=== PATIENT | male | born 1970 | race Caucasian/White ===

== ENCOUNTER 2018-07-26 18:04 | Emergency (ER) | payer OTHER ==
[2018-07-26 18:09] VITALS: BP 119/84; PULSE 73; TEMP 97.3; BMI 25.7
--- NOTE | 2018-07-26 18:11 | PDOC ---
Rapid Medical Evaluation Medical Evaluation: Allergies Allergy/AdvReac Type Severity Reaction Status Date / Time No Known Allergies Allergy Verified 05/18/15 08:28 07/26/18 18:06 I have performed a brief in-person evaluation of this patient. The patient presents with a chief complaint of:left knee pain / slipped and fell - onto hyper flexed knee , hyperextended right thumb Pertinent physical exam findings: some swelling and pain / amb with limp I have ordered the following: right thumb , left knee The patient will proceed to the ED for further evaluation. Discharge Disposition - Diagnosis Pain - Referrals - Patient Instructions - Post Discharge Activity
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
== END 2018-07-26 19:04 | disposition home or self-care (01) ==
LOC: JERFT 18:04
DX: S83.8X2A Sprain of other specified parts of left knee, initial encounter (principal); S63.641A Sprain of metacarpophalangeal joint of right thumb, initial encounter; W18.39XA Other fall on same level, initial encounter; X02.8XXA Other exposure to controlled fire in building or structure, initial encounter; Y93.89 Activity, other specified; Y92.89 Other specified places as the place of occurrence of the external cause; Y99.0 Civilian activity done for income or pay
CPT/HCPCS: 73130-TC-RT-FY; 73562-TC-LT-FY; 99281-25

== ENCOUNTER 2020-12-28 07:45 | Emergency (ER) | payer OTHER ==
[2020-12-28 07:57] VITALS: BP 121/74; PULSE 78; TEMP 98.8; BMI 23.1
[2020-12-28] MEDS ORDERED: CEPHALEXIN MONOHYDRATE 500 MG CAPSULE (UD) PO ONE (07:57)
[2020-12-28] MEDS ORDERED: CEPHALEXIN MONOHYDRATE 500 MG CAPSULE (UD) ONE (07:58)
== END 2020-12-28 09:09 | disposition home or self-care (01) ==
LOC: FER 07:45
PROC: 0HQGXZZ Repair Left Hand Skin, External Approach (ICD-10-PCS; principal; 2020-12-28)
DX: S61.215A Laceration without foreign body of left ring finger without damage to nail, initial encounter (principal)
CPT/HCPCS: 73140-TC-LT-FY; 99283-25

== ENCOUNTER 2021-04-17 08:14 | Emergency (ER) | payer BC, OTHER ==
[2021-04-17 08:19] VITALS: TEMP 98.1; BMI 25.0
[2021-04-17] MEDS ORDERED: KETOROLAC TROMETHAMINE 60 MG/2 ML VIAL IM ONE (08:55)
[2021-04-17] MEDS ORDERED: KETOROLAC TROMETHAMINE 30 MG/1 ML VIAL ONE (09:22)
[2021-04-17 10:52] VITALS: BP 110/69; PULSE 69
== END 2021-04-17 10:58 ==
LOC: JER 08:14
PROC: 3E0233Z Introduction of Anti-inflammatory into Muscle, Percutaneous Approach (ICD-10-PCS; principal; 2021-04-17)
DX: M51.26 Other intervertebral disc displacement, lumbar region (principal); S83.91XA Sprain of unspecified site of right knee, initial encounter; W01.0XXA Fall on same level from slipping, tripping and stumbling without subsequent striking against object, initial encounter; X50.0XXA Overexertion from strenuous movement or load, initial encounter
CPT/HCPCS: 72131-TC; 73562-TC-RT-FY; 99284-25

== ENCOUNTER 2022-10-16 20:57 | Emergency (ER) | payer OTHER ==
[2022-10-16 21:03] VITALS: BP 117/76; PULSE 69; RESP 20; TEMP 98.5; BMI 25.7
== END 2022-10-16 21:46 | disposition home or self-care (01) ==
LOC: JERFT 20:57 → JER 20:57 → JERFT 21:46
DX: M25.561 Pain in right knee (principal); R22.41 Localized swelling, mass and lump, right lower limb
CPT/HCPCS: 99282-25